=== PATIENT | female | born 1950 | race Two or more races ===

== ENCOUNTER 2024-09-15 08:50 | Emergency (ER) | payer OTHER ==
[~2024-09-15] VITALS: Ht 154.9 cm; Wt 90.7 kg
[2024-09-15] MEDS ORDERED: ST. JOSEPH ASPI81 M2 PO (09:08)
[2024-09-15] MEDS ORDERED: ROSUVASTATIN CA10 MG PO (09:08)
[2024-09-15] MEDS ORDERED: LEVOTHYROXINE25 MC1 PO (09:08)
[2024-09-15] MEDS ORDERED: METOPROLOL SUCC50 MG PO (09:08)
[2024-09-15] MEDS ORDERED: IBANDRONATE SO150 MG PO (09:09)
[2024-09-15] MEDS ORDERED: OMEPRAZOLE40 MG PO (09:09)
[2024-09-15] MEDS ORDERED: GABAPENTIN800 M1 PO (09:09)
[2024-09-15] MEDS ORDERED: GUAIFEN/DEXTROMETHORPHAN/PE 10 ML BLIST.PACK PO STA ×2 (09:49→10:09)
[2024-09-15] MEDS ORDERED: LEVALBUTEROL HCL 1.25 MG/3 ML SOLUTION IH STA (09:49)
[2024-09-15] MEDS ORDERED: GUAIFEN/DEXTROMETHORPHAN/PE 10 ML BLIST.PACK PO ONE (10:05)
[2024-09-15 10:30] LABS: HEMATOCRIT 42.4 % (36.0-45.00); MEAN CELL VOLUME 86.8 fL (80.00-100.00); MEAN CORPUSCULAR HEMOGLOBIN 28.7 pg (27.00-32.0); MEAN CORPUSCULAR HGB CONC 33.1 g/dl (32.0-36.0); PLATELET COUNT 265 K/uL (150-450); RED BLOOD COUNT 4.88 M/uL (4.00-6.00); RED CELL DISTRIBUTION WIDTH 14.1 % (11.5-14.5)
[2024-09-15] MEDS ORDERED: LEVALBUTEROL HCL 1.25 MG/3 ML SOLUTION IH ONE (10:37)
== END 2024-09-15 11:16 | disposition home or self-care (01) ==
LOC: ER 08:50
PROVIDERS: General Practice
DX: R05.9 Cough, unspecified (principal); J00 Acute nasopharyngitis [common cold]; E03.8 Other specified hypothyroidism

== ENCOUNTER → 2025-07-14 | Emergency (ER) | payer OTHER ==
[~2025-07-14] VITALS: Ht 154.9 cm; Wt 81.6 kg
[~2025-07-14] MED LIST: CEFTRIAXONE SODIUM 1,000 MG VIAL IM STA; DEXAMETHASONE SODIUM PHOSPHATE 4 MG/ML VIAL IM STA; GABAPENTIN800 M1 PO; IBANDRONATE SO150 MG PO; IBU600 MG PO; KETOROLAC TROMETHAMINE 30 MG VIAL IM STA; LEVOTHYROXINE25 MC1 PO; METOPROLOL SUCC50 MG PO; OMEPRAZOLE40 MG PO; ORPHENADRINE CITRATE 30 MG/ML AMPUL IM STA; OSEL75CA PO; ROSUVASTATIN CA10 MG PO; ST. JOSEPH ASPI81 M2 PO
[2025-07-14 13:37] LABS: BASO % 0.2 % (0.1-1.2); EOS # 0.08 (0.04-0.54); EOS % 2.0 % (0.7-7.0); LYMPH # 0.60 (1.18-3.74); LYMPH % 14.7 % (19.3-53.1); MEAN PLATELET VOLUME 11.30 fl (9.4-12.4); MONO # 0.73 (0.24-0.82); NEUT # 2.64 (1.56-6.13); NEUT % 65.0 % (34.0-71.1); RED CELL DISTRIBUTION WIDTH 14.1 % (11.6-14.4)
[2025-07-14 13:39] LABS: ERYTHROCYTE SEDIMENTATION RATE 36 mm/hr (0-30)
[2025-07-14 13:41] LABS: MONO % 17.9 % (4.7-12.5)
[2025-07-14 13:59] LABS: INR 1.06
[2025-07-14 14:15] LABS: URINE APPEARANCE Clear; URINE BILIRRUBIN Negative (NEGATIVE); URINE BLOOD Moderate; URINE COLOR Yellow; URINE GLUCOSE Negative (NEGATIVE); URINE KETONE Negative (NEGATIVE); URINE LEUKOCYTE Small; URINE NITRATE Negative; URINE PROTEIN Trace (NEGATIVE); URINE UROBILINOGEN 1.0 E.U./dl
[2025-07-14 14:21] LABS: URINE EPITHELIAL CELLS 45.9 uL (0.0-38.8); URINE RBC 11.3 uL (0.0-20.8); URINE WBC 36.7 uL (0.0-23.2)
[2025-07-14 14:22] LABS: ALT/SGPT 55.0 U/L (12-78); AST/SGOT 51.0 U/L (15-37); BILIRUBIN TOTAL 0.33 mg/dL (0.3-1.2); BUN CREA RATIO 15.0 (7.0-25.0); CREATININE SERUM 0.65 mg/dL (0.55-1.02); GFR 89.35; GLOBULINA 3.9 G/DL (2.4-3.5); GLUCOSE FASTING 104.0 mg/dL (65-100); OSMOLALITY SERUM 277.0 MOSM/KG (275-295)
[2025-07-14 14:29] LABS: COVID-19 AG NEGATIVE (NEGATIVE)
[2025-07-14 14:32] LABS: URINE BACTERIA > 9821.5 uL (0.0-1933); URINE CAST 0.42 uL (0.0-1.40)
== END | disposition home or self-care (01) ==
LOC: ER 10:46
PROVIDERS: Physician Assistant Medical
DX: J10.1 Influenza due to other identified influenza virus with other respiratory manifestations (principal); E03.8 Other specified hypothyroidism; E78.49 Other hyperlipidemia; I48.91 Unspecified atrial fibrillation; I11.9 Hypertensive heart disease without heart failure; Z20.822 Contact with and (suspected) exposure to COVID-19; N39.0 Urinary tract infection, site not specified; M54.50 Low back pain, unspecified
CPT/HCPCS: 36415; 71046; 72100; 93005; 96372; 99283; J0696; J1100; J1885; J2360